=== PATIENT | female | born 1980 | race Caucasian/White ===

== ENCOUNTER → 2016-10-16 | Outpatient (CLI) | payer OTHER ==
[~2016-10-16] MED LIST: 'PARAFON FORTE500 M1 PO; ALBUTEROL0.09 MG/A1 INH; AMBIEN PO; ANAPROX DS550 MG PO; BACTRIM DS 8001 TA1 PO; BACTROBAN CREAM15 GM T; CIPROFLOXACIN500 MG PO; CLEOCIN150 MG PO; CORTISPORIN SUS10 ML OT; DAYPRO600 M1 PO; EC NAPROSYN375 MG PO; ERY-TAB333 MG PO; HYDROCODONE BIT1 T11 PO; MACROBID100 M1 PO; MIDRIN (DURADR1 CAP PO; MOTRIN600 MG PO; MOTRIN800 MG PO; NAPROSYN500 MG PO; NORCO 325 MG-51 TAB PO; PERCOCET 325 MG1 TA5 PO; PREDNICOT20 MG PO; PREDNISONE20 M1 PO; TRAZODONE50 MG PO; TYLENOL W/CODEI1 TA2 PO; TYLENOL W/CODEI1 TA5 PO; VICODIN 5-3001 EACH PO; VICODIN 5/500 505 MG PO; XANAX PO; ZITHROMAX Z PA250 MG PO; ZITHROMAX250 MG PO; ZOFRAN4 MG PO
== END | disposition home or self-care (01) ==
LOC: US 14:54
DX: N92.1 Excessive and frequent menstruation with irregular cycle (principal)

== ENCOUNTER 2016-10-29 13:54 | Emergency (ER) | payer OTHER ==
[~2016-10-29] VITALS: Ht 157.4 cm; Wt 88.5 kg
[2016-10-29] MEDS ORDERED: TIZANIDINE HCL4 MG PO (14:00)
[2016-10-29] MEDS ORDERED: VISTARIL25 MG PO (14:15)
== END 2016-10-29 14:04 | disposition home or self-care (01) ==
LOC: ED 13:54
DX: F41.9 Anxiety disorder, unspecified (principal); F17.200 Nicotine dependence, unspecified, uncomplicated; Z98.51 Tubal ligation status; Z88.1 Allergy status to other antibiotic agents; Z88.0 Allergy status to penicillin

== ENCOUNTER → 2016-11-27 | Day surgery (SDC) | payer OTHER ==
[2016-11-23 11:11] LABS: BASO # 0.1 10*3/uL (0.0-0.1); BASO % 1.4 % (0.0-1.0); EOS # 0.8 10*3/uL (0.0-0.4); HEMATOCRIT 35.6 % (37.0-47.0); HEMOGLOBIN 11.7 g/dl (12.0-16.0); LYMPH # 2.5 10*3/uL (1.3-4.4); LYMPH % 32.5 % (27.0-41.0); MEAN CORPUSCULAR HGB 28.3 pg (27.0-31.0); MEAN CORPUSCULAR HGB CONC 32.9 g/dl (33.0-37.0); MEAN PLATELET VOLUME 10.1 fl (9.6-12.3); MONO # 0.4 10*3/uL (0.1-1.0); MONO % 5.1 % (3.0-9.0); NEUT # 3.9 10*3/uL (2.3-7.9); NEUT % 50.7 % (47.0-73.0); PLATELET COUNT AUTOMATED 311 10*3/uL (130-400); RED BLOOD COUNT 4.14 10*6/uL (4.10-5.10); RED CELL DISTRI WIDTH 14.6 % (0-14.5); WHITE BLOOD COUNT 7.7 10*3/uL (4.8-10.8)
[~2016-11-27] VITALS: Ht 157.4 cm; Wt 86.2 kg
[~2016-11-27] MED LIST changes: +TIZANIDINE HCL4 MG PO; +VISTARIL25 MG PO
--- NOTE | ~2016-11-27 | O ---
[place], [place] OPERATIVE NOTE NAME: LEOPOLDO FRANCO UNIT #: [id number] ROOM: DOCTOR: JOE PUENTE MD BIRTHDATE: [birth year] DOS: 11/27/2016 PREOPERATIVE DIAGNOSES: Polymenorrhea, menorrhagia, dysmenorrhea, status post tubal ligation and anemia. POSTOPERATIVE DIAGNOSES: Polymenorrhea, menorrhagia, dysmenorrhea, status post tubal ligation and anemia. PROCEDURE: Hysteroscopy, D and C, and NovaSure endometrial ablation. SURGEON: Dr. Joe Morgan. ANESTHESIA: MAC and paracervical block 2% Nesacaine. ESTIMATED BLOOD LOSS: Minimal. REPLACEMENTS: IV fluids and Toradol. COMPLICATIONS: There were no complications. PATIENT'S CONDITION TO RECOVERY: Stable. OPERATIVE SUMMARY: The patient was taken to the operating room where she was placed in a supine position and administered MAC anesthesia, placed in lithotomy position where she was prepped and draped in routine manner. The cervix was grasped. The bladder was straight drained and once the cervix was grasped. The uterus was sounded to about 10 cm. Cervix was progressively dilated followed by hysteroscopic examination of the intrauterine cavity, which revealed quite shaggy consistent with secretory phase endometrium, but there were no other atypicalities per se noted. The thorough D and C was completed with curet and stone forceps and a moderate amount of tissue removed. Once this was completed, the NovaSure device was placed and after achieving the appropriate depth and width and noting that the cavity was intact, we proceeded with an ablation without complication. Once this was completed, the NovaSure device was removed and repeat hysteroscopy was completed revealing an excellent global ablation revealing no other atypicalities. All instrumentation was removed including the tenaculum and the hysteroscope and noting good hemostasis. The patient was cleaned off, taken out of lithotomy position, awakened and transferred to recovery in satisfactory condition with stable vital signs, good hemostasis, and stable sponge and instrument count. I should also mention that the paracervical block as described above was consisted of 2% Nesacaine, 5 mL injected at 4 and 7 o'clock respectively. [place], [place] OPERATIVE NOTE NAME: LEOPOLDO FRANCO UNIT #: [id number] ROOM: DOCTOR: JOE PUENTE MD BIRTHDATE: [birth year] JOE PUENTE MD CM:OPRECORD:OPERATIVE NOTE [id number] JOE PUENTE MD 11/27/16 1038 interface
--- NOTE | ~2016-11-27 | WRIGHTHP ---
[place], [place] PATIENT HISTORY AND PHYSICAL EXAM NAME: LEOPOLDO FRANCO [facility] #: [id number] UNIT #: [id number] ROOM: DOCTOR: JOE PUENTE MD BIRTHDATE: [birth year] DOS: 11/27/2016 DATE OF SURGERY: 11/27/2016 HISTORY OF PRESENT ILLNESS: The patient is a 35-year-old white female, 3, para 3, AB 0, status post tubal ligation, who was seen in the office on 11/13/2016 as a kind referral from Dr. Cook, my partner, for possible hysterectomy. The patient had a claim of endometriosis noted when she had seen me, but I have reviewed her tubal ligation report from 2011 and it revealed a normal pelvis and no endometriosis. Her last menstrual period was 10/22/2016. The patient stated that she was troubled with polymenorrhea with each bleeding episode lasting about a week and very heavy flow with cramps over about a 4-year period of time. She has had 2 of these episodes per month on several occasions. She has tried an IUD and not tolerated this well. She does not really want any hormonal therapy. The patient wants a hysterectomy, but her central obesity and increased BMI of 36, being 5 feet 1 inch, 190 pounds does provide a significant increase risk versus the NovaSure. I reviewed the risks and benefits, indications, potential complications, and alternatives of NovaSure. She did state understanding to this and opted to proceed with the hysteroscopy, D and C and NovaSure. PAST MEDICAL HISTORY: Reveals a history of depression, anxiety, history of chickenpox, seizure disorder, migraine headaches and "nervousness." She has had 3 pregnancies and 3 vaginal deliveries. PAST SURGICAL HISTORY: She has had laparoscopy x 2 including one of those being a tubal ligation. SOCIAL HISTORY: The patient does smoke a half pack per day and her office information list does not indicate anything in regard to alcohol. MEDICATIONS: The patient takes several medications including Martinez 5/325 up to 4 times a day for migraine headaches, tizanidine 4 mg 1 tablet daily as a muscle relaxer, trazodone 150 mg at bedtime for sleep, MiraLax p.r.n., multivitamin and vitamin D. ALLERGIES: SHE STATES THAT SHE IS ALLERGIC TO THE CILLINS, PARTICULARLY PENICILLIN. REVIEW OF SYSTEMS: Otherwise is stable. FAMILY HISTORY: Reveals only the maternal grandfather with gastric CA. PHYSICAL EXAMINATION: GENERAL: Reveals a pleasant white female. VITAL SIGNS: She is 5 feet 1 as I said, 190 pounds, BMI is 36. Blood pressure 128/80 and she is in no apparent distress. HEENT, NECK, LUNGS, CARDIAC, BREAST, ABDOMEN, EXTREMITIES, NEUROLOGIC: All within normal limits or consistent with her BMI. GENITOURINARY: External genitalia, vagina and cervix are normal. Uterus [place], [place] PATIENT HISTORY AND PHYSICAL EXAM NAME: LEOPOLDO FRANCO UNIT #: [id number] ROOM: DOCTOR: JOE PUENTE MD BIRTHDATE: [birth year] anteverted and anteflexed, otherwise normal in size and configuration, nontender, mobile. Adnexa negative. RECTAL: Deferred. ASSESSMENT: The patient with polymenorrhea, menorrhagia, dysmenorrhea, who desires more definitive relief. She is also status post tubal ligation. To that end, on 11/27/2016, the patient will undergo hysteroscopy, D and C and NovaSure endometrial ablation. JOE PUENTE MD CM:HISPHYS:PATIENT HISTORY AND PHYSICAL EXAMINATION [id number] MELISSA CHASE MD 11/23/16 1106 interface
[2016-11-27 08:00] VITALS: BP 128/71
[2016-11-27 09:18] VITALS: BP 110/72
[2016-11-27 09:35] VITALS: BP 118/76
[2016-11-27 09:43] VITALS: BP 121/77
[2016-11-27 10:02] VITALS: BP 116/79
== END | disposition home or self-care (01) ==
LOC: SDC 11-23 09:30
PROVIDERS: Obstetrics & Gynecology
DX: N92.0 Excessive and frequent menstruation with regular cycle (principal); N94.6 Dysmenorrhea, unspecified; D64.9 Anemia, unspecified; F32.9 Major depressive disorder, single episode, unspecified; F41.9 Anxiety disorder, unspecified; G43.909 Migraine, unspecified, not intractable, without status migrainosus; E66.9 Obesity, unspecified; Z98.51 Tubal ligation status; Z88.0 Allergy status to penicillin; Z80.0 Family history of malignant neoplasm of digestive organs; F17.210 Nicotine dependence, cigarettes, uncomplicated

== ENCOUNTER → 2016-12-29 | Outpatient (CLI) | payer OTHER | END | disposition home or self-care (01) | LOC: RAD 15:39 | DX: M41.86 Other forms of scoliosis, lumbar region (principal); M51.26 Other intervertebral disc displacement, lumbar region; M47.817 Spondylosis without myelopathy or radiculopathy, lumbosacral region; M47.812 Spondylosis without myelopathy or radiculopathy, cervical region; M12.88 Other specific arthropathies, not elsewhere classified, other specified site ==

== ENCOUNTER 2017-03-07 09:55 | Emergency (ER) | payer OTHER ==
[~2017-03-07] VITALS: Wt 88.5 kg
== END 2017-03-07 12:28 | disposition home or self-care (01) ==
LOC: ED 09:55
DX: R51 Headache (principal); M25.562 Pain in left knee; F17.200 Nicotine dependence, unspecified, uncomplicated; Z98.51 Tubal ligation status; Z88.0 Allergy status to penicillin; Z88.1 Allergy status to other antibiotic agents; W22.8XXA Striking against or struck by other objects, initial encounter; Y93.89 Activity, other specified; Y92.89 Other specified places as the place of occurrence of the external cause; Y99.9 Unspecified external cause status

== ENCOUNTER 2017-03-18 17:35 | Emergency (ER) | payer OTHER ==
[~2017-03-18] VITALS: Wt 83.9 kg
[2017-03-18] MEDS ORDERED: VISTARIL25 M2 PO ×2 (18:24→18:25)
== END 2017-03-18 18:31 | disposition home or self-care (01) ==
LOC: ED 17:35
DX: F41.9 Anxiety disorder, unspecified (principal); F17.200 Nicotine dependence, unspecified, uncomplicated; Z88.0 Allergy status to penicillin; Z88.1 Allergy status to other antibiotic agents

== ENCOUNTER 2017-03-29 13:41 | Emergency (ER) | payer OTHER ==
[~2017-03-29] VITALS: Ht 157.4 cm; Wt 88.5 kg
[~2017-03-29 13:41] MED LIST changes: +VISTARIL25 M2 PO
[2017-03-29] MEDS ORDERED: SILVADENE,SSD C50 GM T (13:51)
[2017-03-29] MEDS ORDERED: NAPROSYN500 MG PO (13:51)
== END 2017-03-29 14:01 | disposition home or self-care (01) ==
LOC: ED 13:41
DX: T24.102A Burn of first degree of unspecified site of left lower limb, except ankle and foot, initial encounter (principal); F17.210 Nicotine dependence, cigarettes, uncomplicated; Z88.0 Allergy status to penicillin; Z88.8 Allergy status to other drugs, medicaments and biological substances; F10.10 Alcohol abuse, uncomplicated; X08.8XXA Exposure to other specified smoke, fire and flames, initial encounter; Y93.9 Activity, unspecified; Y92.9 Unspecified place or not applicable; Y99.9 Unspecified external cause status; R03.0 Elevated blood-pressure reading, without diagnosis of hypertension

== ENCOUNTER 2017-04-02 16:36 | Emergency (ER) | payer OTHER ==
[~2017-04-02] VITALS: Ht 157.4 cm; Wt 88.5 kg
[~2017-04-02 16:36] MED LIST changes: +SILVADENE,SSD C50 GM T
[2017-04-02] MEDS ORDERED: SEPTDS PO (17:10)
== END 2017-04-02 17:18 | disposition home or self-care (01) ==
LOC: ED 16:36
DX: T24.002D Burn of unspecified degree of unspecified site of left lower limb, except ankle and foot, subsequent encounter (principal); L08.9 Local infection of the skin and subcutaneous tissue, unspecified; F17.200 Nicotine dependence, unspecified, uncomplicated; Z98.51 Tubal ligation status; Z98.890 Other specified postprocedural states; Z79.899 Other long term (current) drug therapy; Z88.0 Allergy status to penicillin; Z88.1 Allergy status to other antibiotic agents; X08.8XXD Exposure to other specified smoke, fire and flames, subsequent encounter

== ENCOUNTER 2017-07-13 17:00 | Emergency (ER) | payer OTHER ==
[~2017-07-13] VITALS: Ht 157.4 cm; Wt 86.2 kg
[~2017-07-13 17:00] MED LIST changes: +SEPTDS PO
[2017-07-13] MEDS ORDERED: SEPTDS PO (17:20)
[2017-07-13] MEDS ORDERED: Bactroban Oint22 GM T (17:20)
[2017-07-13] MEDS ORDERED: NAPROSYN500 MG PO (17:20)
== END 2017-07-13 18:53 | disposition home or self-care (01) ==
LOC: ED 17:00
DX: L02.212 Cutaneous abscess of back [any part, except buttock and flank] (principal); F17.200 Nicotine dependence, unspecified, uncomplicated; G43.909 Migraine, unspecified, not intractable, without status migrainosus; Z98.51 Tubal ligation status; Z79.899 Other long term (current) drug therapy; Z88.0 Allergy status to penicillin; Z88.1 Allergy status to other antibiotic agents

== ENCOUNTER 2017-07-16 11:44 | Emergency (ER) | payer OTHER ==
[~2017-07-16] VITALS: Ht 157.4 cm; Wt 86.2 kg
[~2017-07-16 11:44] MED LIST changes: +Bactroban Oint22 GM T
== END 2017-07-16 13:45 | disposition home or self-care (01) ==
LOC: ED 11:44
DX: L02.212 Cutaneous abscess of back [any part, except buttock and flank] (principal); F17.200 Nicotine dependence, unspecified, uncomplicated; G43.909 Migraine, unspecified, not intractable, without status migrainosus; Z98.51 Tubal ligation status; Z98.890 Other specified postprocedural states; Z88.0 Allergy status to penicillin; Z88.1 Allergy status to other antibiotic agents; Z79.899 Other long term (current) drug therapy

== ENCOUNTER 2017-09-06 16:32 | Emergency (ER) | payer OTHER ==
[~2017-09-06] VITALS: Wt 86.2 kg
[2017-09-06] MEDS ORDERED: MEDROL DOSEPAK4 MG PO (17:51)
[2017-09-06] MEDS ORDERED: CYCLOBENZAPRINE10 MG PO (17:51)
[2017-09-06] MEDS ORDERED: NAPROSYN500 MG PO (17:51)
== END 2017-09-06 17:43 | disposition home or self-care (01) ==
LOC: ED 16:32
DX: R51 Headache (principal); M54.41 Lumbago with sciatica, right side; Z98.51 Tubal ligation status; Z79.899 Other long term (current) drug therapy; Z88.0 Allergy status to penicillin; Z88.1 Allergy status to other antibiotic agents

== ENCOUNTER 2017-11-13 14:03 | Emergency (ER) | payer OTHER ==
[~2017-11-13] VITALS: Ht 157.4 cm; Wt 86.2 kg
[~2017-11-13 14:03] MED LIST changes: +CYCLOBENZAPRINE10 MG PO; +MEDROL DOSEPAK4 MG PO
== END 2017-11-13 16:19 | disposition home or self-care (01) ==
LOC: ED 14:03
DX: S93.491A Sprain of other ligament of right ankle, initial encounter (principal); S80.212A Abrasion, left knee, initial encounter; Z88.0 Allergy status to penicillin; Z88.1 Allergy status to other antibiotic agents; Z79.899 Other long term (current) drug therapy; W10.8XXA Fall (on) (from) other stairs and steps, initial encounter; Y93.89 Activity, other specified; Y92.89 Other specified places as the place of occurrence of the external cause; Y99.9 Unspecified external cause status

== ENCOUNTER 2017-12-30 21:33 | Emergency (ER) | payer OTHER ==
[~2017-12-30] VITALS: Ht 157.4 cm; Wt 86.2 kg
[2017-12-30 21:54] LABS: BILIRUBIN NEGATIVE (NEGATIVE); BLOOD 1+ (NEGATIVE); CLARITY SL CLOUDY (CLEAR); COLOR YELLOW (YELLOW); GLUCOSE NEGATIVE (NEGATIVE); KETONE NEGATIVE (NEGATIVE); LEUKO ESTERASE 2+ (NEGATIVE); NITRITE NEGATIVE (NEGATIVE); SPECIFIC GRAVITY 1.015 (1.005-1.030); UROBILINOGEN 0.2 E.U./dl (0.2-1.0)
[2017-12-30 22:04] LABS: BACTERIA 1+; WBC 21-30 wbc/hpf (0-5)
[2017-12-30] MEDS ORDERED: PYRIDIUM100 MG PO (22:05)
[2017-12-30] MEDS ORDERED: SEPTDS PO (22:05)
== END 2017-12-30 22:20 ==
LOC: ED 21:33
PROVIDERS: Physician Assistant
DX: N39.0 Urinary tract infection, site not specified (principal); N76.0 Acute vaginitis; F17.200 Nicotine dependence, unspecified, uncomplicated; Z88.0 Allergy status to penicillin; Z88.1 Allergy status to other antibiotic agents

== ENCOUNTER → 2018-02-28 | Outpatient (CLI) | payer OTHER ==
[~2018-02-28] MED LIST changes: +PYRIDIUM100 MG PO
[2018-02-28 16:36] LABS: HEMATOCRIT 40.8 % (37.0-47.0); MEAN CELL VOLUME 91.3 fl (81.0-99.0); MEAN CORPUSCULAR HGB 31.3 pg (27.0-31.0); MEAN CORPUSCULAR HGB CONC 34.3 g/dl (33.0-37.0); MEAN PLATELET VOLUME 9.9 fl (9.6-12.3); RED BLOOD COUNT 4.47 10*6/uL (4.10-5.10)
[2018-02-28 17:08] LABS: ALBUMIN 3.4 gm/dl (3.1-4.5); ALKALINE PHOSPHATASE 96 U/L (45-117); BUN 6 mg/dl (7-24); CHLORIDE 108 mmol/L (98-107); CHOLESTEROL 194 mg/dL (<200); CREATININE 0.83 mg/dL (0.55-1.02); HDL CHOLESTEROL 22 mg/dl (40-60); LDL CHOLESTEROL 109 mg/dL (9-159); POTASSIUM 4.1 mmol/L (3.5-5.1); SGOT/AST 6 IU/L (3-35); SGPT/ALT 16 U/L (12-78); SODIUM 139 mmol/L (136-145); TOTAL PROTEIN 7.4 gm/dL (6.4-8.2); TRIGLYCERIDES 317 mg/dl (<150); VLDL CHOLESTEROL 63 mg/dL (6-40)
== END | disposition home or self-care (01) ==
LOC: LAB 16:21
PROVIDERS: Registered Nurse Flight
DX: Z13.220 Encounter for screening for lipoid disorders (principal); Z13.29 Encounter for screening for other suspected endocrine disorder

== ENCOUNTER 2018-12-27 22:57 | Emergency (ER) | payer OTHER ==
[~2018-12-27] VITALS: Ht 157.4 cm; Wt 86.2 kg
[~2018-12-27 22:57] MED LIST changes: +CLARITIN10 MG PO; +FLONASE ALLERG9.9 ML NAS; +PREDNISONE10 MG PO
[2018-12-27] MEDS ORDERED: TIZANIDINE HCL4 MG PO (23:12)
[2018-12-27] MEDS ORDERED: MELOXICAM15 MG PO (23:12)
[2018-12-28] MEDS ORDERED: ANUSOL HC30 GM PO (00:16)
== END 2018-12-28 00:21 | disposition home or self-care (01) ==
LOC: ED 22:57
DX: K64.4 Residual hemorrhoidal skin tags (principal); F17.200 Nicotine dependence, unspecified, uncomplicated; Z88.0 Allergy status to penicillin; Z88.1 Allergy status to other antibiotic agents; Z79.899 Other long term (current) drug therapy; Z98.51 Tubal ligation status; Z98.890 Other specified postprocedural states

== ENCOUNTER 2019-04-12 21:24 | Emergency (ER) | payer OTHER ==
[~2019-04-12] VITALS: Ht 157.4 cm; Wt 88.5 kg
[~2019-04-12 21:24] MED LIST changes: +ANUSOL HC30 GM PO; +MELOXICAM15 MG PO
[2019-04-13] MEDS ORDERED: ZITHROMAX250 MG PO (00:10)
== END 2019-04-13 01:00 | disposition home or self-care (01) ==
LOC: ED 21:24
DX: J06.9 Acute upper respiratory infection, unspecified (principal); H66.91 Otitis media, unspecified, right ear; G43.909 Migraine, unspecified, not intractable, without status migrainosus; G89.29 Other chronic pain; F17.200 Nicotine dependence, unspecified, uncomplicated; Z88.0 Allergy status to penicillin; Z88.1 Allergy status to other antibiotic agents; Z79.899 Other long term (current) drug therapy

== ENCOUNTER 2019-06-29 19:26 | Emergency (ER) | payer OTHER ==
[~2019-06-29] VITALS: Wt 81.6 kg
[2019-06-29 19:58] LABS: BASO # 0.1 10*3/uL (0.0-0.1); EOS # 0.8 10*3/uL (0.0-0.4); EOS % 7.8 % (1.0-4.0); HEMATOCRIT 39.7 % (37.0-47.0); HEMOGLOBIN 13.3 g/dl (12.0-16.0); LYMPH # 3.9 10*3/uL (1.3-4.4); LYMPH % 38.2 % (27.0-41.0); MEAN CELL VOLUME 93.4 fl (81.0-99.0); MEAN CORPUSCULAR HGB 31.3 pg (27.0-31.0); MEAN CORPUSCULAR HGB CONC 33.5 g/dl (33.0-37.0); MEAN PLATELET VOLUME 9.6 fl (9.6-12.3); MONO # 0.5 10*3/uL (0.1-1.0); MONO % 4.6 % (3.0-9.0); NEUT # 4.9 10*3/uL (2.3-7.9); NEUT % 48.2 % (47.0-73.0); PLATELET COUNT AUTOMATED 376 10*3/uL (130-400); RED BLOOD COUNT 4.25 10*6/uL (4.10-5.10); RED CELL DISTRI WIDTH 13.5 % (0-14.5); WHITE BLOOD COUNT 10.1 10*3/uL (4.8-10.8)
[2019-06-29 20:14] LABS: ALBUMIN 3.5 gm/dl (3.1-4.5); ALKALINE PHOSPHATASE 92 U/L (45-117); BUN 9 mg/dl (7-24); CHLORIDE 108 mmol/L (98-107); POTASSIUM 3.9 mmol/L (3.5-5.1); SGOT/AST 10 IU/L (3-35); SGPT/ALT 23 U/L (12-78); SODIUM 139 mmol/L (136-145); TOTAL PROTEIN 7.3 gm/dL (6.4-8.2)
[2019-06-29 21:27] LABS: BILIRUBIN NEGATIVE (NEGATIVE); BLOOD 1+ (NEGATIVE); CLARITY SL CLOUDY (CLEAR); COLOR YELLOW (YELLOW); GLUCOSE NEGATIVE (NEGATIVE); KETONE NEGATIVE (NEGATIVE); LEUKO ESTERASE 1+ (NEGATIVE); NITRITE NEGATIVE (NEGATIVE); UROBILINOGEN 0.2 E.U./dl (0.2-1.0)
[2019-06-29 21:50] LABS: BACTERIA 1+; RBC 0-2 rbc/hpf (0-2)
[2019-06-29 22:16] LABS: BILIRUBIN NEGATIVE (NEGATIVE); BLOOD 1+ (NEGATIVE); CLARITY CLEAR (CLEAR); COLOR YELLOW (YELLOW); GLUCOSE NEGATIVE (NEGATIVE); KETONE NEGATIVE (NEGATIVE); LEUKO ESTERASE 1+ (NEGATIVE); NITRITE NEGATIVE (NEGATIVE); UROBILINOGEN 0.2 E.U./dl (0.2-1.0)
[2019-06-29 22:31] LABS: BACTERIA 1+; EPITHELIAL CELLS 15-20; WBC 21-30 wbc/hpf (0-5)
[2019-06-29] MEDS ORDERED: METRONIDAZOLE500 M1 PO (22:45)
[2019-06-29] MEDS ORDERED: SEPTDS PO (22:48)
== END 2019-06-29 23:10 | disposition home or self-care (01) ==
LOC: ED 19:26
PROVIDERS: Emergency Medicine
DX: A59.9 Trichomoniasis, unspecified (principal); N39.0 Urinary tract infection, site not specified; G89.29 Other chronic pain; G43.909 Migraine, unspecified, not intractable, without status migrainosus; F17.200 Nicotine dependence, unspecified, uncomplicated; Z88.0 Allergy status to penicillin; Z88.1 Allergy status to other antibiotic agents; Z79.899 Other long term (current) drug therapy

== ENCOUNTER → 2019-09-01 | Outpatient (CLI) | payer OTHER ==
[~2019-09-01] MED LIST changes: +METRONIDAZOLE500 M1 PO
== END | disposition home or self-care (01) ==
LOC: RAD 12:12
DX: M51.26 Other intervertebral disc displacement, lumbar region (principal)

== ENCOUNTER 2021-02-25 14:25 | Emergency (ER) | payer OTHER ==
[~2021-02-25] VITALS: Ht 157.4 cm; Wt 99.8 kg
== END 2021-02-25 21:23 | disposition left against medical advice (07) ==
LOC: ED 14:25
DX: R22.0 Localized swelling, mass and lump, head (principal); Z53.21 Procedure and treatment not carried out due to patient leaving prior to being seen by health care provider

== ENCOUNTER → 2021-11-23 | Outpatient (CLI) | payer OTHER ==
[2021-11-23 09:43] LABS: BILIRUBIN Negative (Negative); BLOOD Negative (Negative); CLARITY Clear (Clear); COLOR Yellow (Yellow); GLUCOSE Negative (Negative); KETONE Negative (Negative); LEUKO ESTERASE 2+ (Negative); NITRITE Negative (Negative); UROBILINOGEN 0.2 E.U./dl (0.0-1.0)
[2021-11-23 09:45] LABS: BASO # 0.1 10*3/uL (0.0-0.1); BASO % 0.8 % (0.0-1.0); EOS % 8.5 % (1.0-4.0); HEMATOCRIT 39.6 % (37.0-47.0); LYMPH # 2.9 10*3/uL (1.3-4.4); LYMPH % 24.7 % (27.0-41.0); MEAN CELL VOLUME 88.2 fl (81.0-99.0); MEAN CORPUSCULAR HGB 29.8 pg (27.0-31.0); MEAN CORPUSCULAR HGB CONC 33.8 g/dl (33.0-37.0); MEAN PLATELET VOLUME 9.9 fl (9.6-12.3); MONO # 0.5 10*3/uL (0.1-1.0); MONO % 3.8 % (3.0-9.0); NEUT # 7.3 10*3/uL (2.3-7.9); NEUT % 61.9 % (47.0-73.0); PLATELET COUNT AUTOMATED 362 10*3/uL (130-400); RED BLOOD COUNT 4.49 10*6/uL (4.10-5.10); RED CELL DISTRI WIDTH 14.6 % (0-14.5); WHITE BLOOD COUNT 11.8 10*3/uL (4.8-10.8)
[2021-11-23 09:57] LABS: ALKALINE PHOSPHATASE 107 U/L (45-117); BUN 7 mg/dl (7-24); CHLORIDE 109 mmol/L (98-107); CHOLESTEROL 185 mg/dL (<200); CREATININE 0.76 mg/dL (0.55-1.02); POTASSIUM 3.7 mmol/L (3.5-5.1); SGOT/AST 11 IU/L (3-35); SGPT/ALT 17 U/L (12-78); SODIUM 140 mmol/L (136-145); TOTAL PROTEIN 7.3 gm/dL (6.4-8.2); TRIGLYCERIDES 455 mg/dl (<150)
[2021-11-23 11:18] LABS: BACTERIA 1+; WBC TNTC wbc/hpf (0-5)
== END | disposition home or self-care (01) ==
LOC: LAB 09:07
PROVIDERS: ATTEND Internal Medicine
DX: J44.9 Chronic obstructive pulmonary disease, unspecified (principal)

== ENCOUNTER 2022-06-09 14:05 | Emergency (ER) | payer OTHER ==
[~2022-06-09] VITALS: Ht 157.4 cm; Wt 108.9 kg
[2022-06-09] MEDS ORDERED: ZITHROMAX500 MG PO (19:37)
[2022-06-09] MEDS ORDERED: PREDNISONE20 M1 PO (19:37)
== END 2022-06-09 20:20 | disposition home or self-care (01) ==
LOC: ED 14:05
DX: J02.9 Acute pharyngitis, unspecified (principal); Z88.0 Allergy status to penicillin; Z88.1 Allergy status to other antibiotic agents; Z79.899 Other long term (current) drug therapy; Z98.51 Tubal ligation status

== ENCOUNTER → 2023-04-26 | Outpatient (CLI) | payer OTHER ==
[~2023-04-26] MED LIST changes: +ZITHROMAX500 MG PO
[2023-04-26 14:18] LABS: CHOLESTEROL 219 mg/dL (<200); TRIGLYCERIDES 434 mg/dl (<150)
== END | disposition home or self-care (01) ==
LOC: LAB 12:32
PROVIDERS: ATTEND Internal Medicine
DX: E78.5 Hyperlipidemia, unspecified (principal); M54.50 Low back pain, unspecified; Z98.890 Other specified postprocedural states

== ENCOUNTER 2023-08-23 09:43 | Emergency (ER) | payer OTHER ==
[~2023-08-23] VITALS: Ht 157.4 cm; Wt 97.1 kg
[2023-08-23] MEDS ORDERED: Ketorolac Tromethamine 60 MG/2 ML VIAL IM ONE (10:00)
[2023-08-23] MEDS ORDERED: Dexamethasone Sodium Phospha 20 MG/5 ML VIAL IM ONE (10:00)
[2023-08-23] MEDS ORDERED: CYCLOBENZAPRINE5 M3 PO (12:33)
[2023-08-23] MEDS ORDERED: MELOXICAM15 MG PO (12:33)
== END 2023-08-23 13:20 | disposition home or self-care (01) ==
LOC: ED 09:43
DX: M54.50 Low back pain, unspecified (principal); M79.604 Pain in right leg; Z88.0 Allergy status to penicillin; Z88.1 Allergy status to other antibiotic agents; Z98.890 Other specified postprocedural states; Z98.51 Tubal ligation status; F32.A Depression, unspecified; F41.9 Anxiety disorder, unspecified; G43.909 Migraine, unspecified, not intractable, without status migrainosus

== ENCOUNTER 2023-10-18 07:41 | Emergency (ER) | payer OTHER ==
[~2023-10-18] VITALS: Ht 157.4 cm; Wt 81.6 kg
[~2023-10-18 07:41] MED LIST changes: +CYCLOBENZAPRINE5 M3 PO
[2023-10-18] MEDS ORDERED: Acetaminophen/Oxycodone 5 MG/325 MG TABLET PO ONE (08:00)
[2023-10-18] MEDS ORDERED: SEPTDS PO (08:04)
[2023-10-18] MEDS ORDERED: MELOXICAM15 MG PO (08:04)
== END 2023-10-18 08:31 | disposition home or self-care (01) ==
LOC: ED 07:41
DX: L03.114 Cellulitis of left upper limb (principal); M54.9 Dorsalgia, unspecified; F41.9 Anxiety disorder, unspecified; F32.A Depression, unspecified; G43.909 Migraine, unspecified, not intractable, without status migrainosus; Z88.0 Allergy status to penicillin; Z88.1 Allergy status to other antibiotic agents; Z98.890 Other specified postprocedural states; Z98.51 Tubal ligation status; F17.200 Nicotine dependence, unspecified, uncomplicated

== ENCOUNTER 2024-10-03 22:15 | Emergency (ER) | payer OTHER ==
[~2024-10-03] VITALS: Ht 157.4 cm; Wt 98.4 kg
[2024-10-03] MEDS ORDERED: Dexamethasone Sodium Phospha 20 MG/5 ML VIAL IV ONE (23:15)
[2024-10-03] MEDS ORDERED: Metoclopramide Hydrochloride 10 MG/2 ML VIAL IV ONE (23:15)
[2024-10-03] MEDS ORDERED: Ketorolac Tromethamine 30 MG/ML VIAL IV ONE (23:15)
[2024-10-03] MEDS ORDERED: SODIUM CHLORIDE 0.9% 1,000 ML IV ONE (23:15)
[2024-10-03] MEDS ORDERED: diphenhydrAMINE hydrochloride 50 MG/ML VIAL IV ONE (23:15)
[2024-10-03] MEDS ORDERED: ACETAMINOPHEN 325 MG TAB PO ONE (23:15)
[2024-10-04] MEDS ORDERED: REGLAN10 M1 PO (00:25)
== END 2024-10-04 01:00 | disposition home or self-care (01) ==
LOC: ED 22:15
DX: G43.909 Migraine, unspecified, not intractable, without status migrainosus (principal); F32.A Depression, unspecified; F41.9 Anxiety disorder, unspecified; Z88.0 Allergy status to penicillin; Z88.1 Allergy status to other antibiotic agents; Z98.51 Tubal ligation status; Z98.890 Other specified postprocedural states

== ENCOUNTER 2024-12-21 21:27 | Emergency (ER) | payer OTHER ==
[~2024-12-21] VITALS: Ht 157.4 cm; Wt 98.0 kg
[~2024-12-21 21:27] MED LIST changes: +REGLAN10 M1 PO
[2024-12-21] MEDS ORDERED: Ondansetron Hydrochloride 4 MG TAB PO ONE (23:05)
[2024-12-21] MEDS ORDERED: Acetaminophen/Oxycodone 5 MG/325 MG TABLET PO ONE (23:05)
[2024-12-22] MEDS ORDERED: NAPROSYN500 MG PO
[2024-12-22] MEDS ORDERED: PREDNISONE20 M1 PO
== END 2024-12-22 00:55 | disposition home or self-care (01) ==
LOC: ED 21:27
DX: S83.92XA Sprain of unspecified site of left knee, initial encounter (principal); Z88.0 Allergy status to penicillin; Z88.1 Allergy status to other antibiotic agents; Z87.42 Personal history of other diseases of the female genital tract; Z98.890 Other specified postprocedural states; X50.1XXA Overexertion from prolonged static or awkward postures, initial encounter; Y93.89 Activity, other specified; Y92.89 Other specified places as the place of occurrence of the external cause; Y99.8 Other external cause status

== ENCOUNTER → 2025-05-22 | Outpatient (CLI) | payer OTHER ==
[2025-05-22 10:19] LABS: BASO # 0.2 10*3/uL (0.0-0.1); BASO % 1.1 % (0.0-1.0); EOS # 1.0 10*3/uL (0.0-0.4); EOS % 7.2 % (1.0-4.0); MEAN CELL VOLUME 90.8 fl (81.0-99.0); MEAN CORPUSCULAR HGB 29.3 pg (27.0-31.0); MEAN PLATELET VOLUME 9.7 fl (9.6-12.3); MONO # 0.6 10*3/uL (0.1-1.0); MONO % 4.6 % (3.0-9.0); NEUT # 7.6 10*3/uL (2.3-7.9); NEUT % 57.1 % (47.0-73.0); NUCLEATED RED BLOOD CELL 0.0 % (0.0-0.0); NUCLEATED RED BLOOD CELL 0.0 10*3/uL (0.0-0.0); PLATELET COUNT AUTOMATED 404 10*3/uL (130-400); RED CELL DISTRI WIDTH 14.5 % (0-14.5)
[2025-05-22 10:43] LABS: BUN 7 mg/dl (9-23); SGPT/ALT 38 U/L (5-49)
== END | disposition home or self-care (01) ==
LOC: LAB 09:29
PROVIDERS: ATTEND Internal Medicine
DX: E78.2 Mixed hyperlipidemia (principal)